=== PATIENT | male | born 1980 | race Caucasian/White ===

== ENCOUNTER 2016-08-02 19:03 | Emergency (ER) | payer OTHER ==
[2016-08-02 19:08] VITALS: BP 142/69; PULSE 94; TEMP 98.4; BMI 45.7
[2016-08-02] MEDS ORDERED: KETOROLAC TROMETHAMINE 30 MG/1 ML VIAL IM ONE (19:10)
[2016-08-02] MEDS ORDERED: KETOROLAC TROMETHAMINE 30 MG/1 ML VIAL ONE (20:58)
--- NOTE | 2016-08-02 21:26 | PDOC ---
History of Present Illness - General Chief Complaint: Injury Stated Complaint: INJURY Time Seen by Provider: 08/02/16 19:06 History Source: Patient Exam Limitations: No Limitations - History of Present Illness Initial Comments: 08/02/16 21:21 36-year-old male presents to the ED with complaints of right hamstring pain after he had jumped over a puddle and landed wrong partially doing the splits. Patient states heard a pop with the episode and has been having difficulty sitting since episode patient states took Motrin with minimal affect and has been using crutches to ambulate to alleviate his discomfort. Patient denies previous injury to the affected area, sensory changes distal of injury, but does state has a bruise to the upper portion of his right hamstring near his buttock. Timing/Duration: other (2 days ago) Associated Symptoms: reports: denies symptoms Past History - Past Medical History Allergies/Adverse Reactions: Allergies Allergy/AdvReac Type Severity Reaction Status Date / Time No Known Allergies Allergy Verified 08/02/16 19:06 Home Medications: Ambulatory Orders Ibuprofen [Motrin] 800 mg PO TID #20 tablet 02/10/15 Suicide Attempt (Hx): No Other medical history: none - Psycho/Social/Smoking Cessation Hx Anxiety: No Suicidal Ideation: No Smoking History: Never smoked Have you smoked in the past 12 months: No Information on smoking cessation initiated: No Hx Alcohol Use: No Drug/Substance Use Hx: No Substance Use Type: None Patient Lives Alone: No Lives with/in: spouse/SO Review of Systems - Review of Systems Able to Perform ROS?: Yes Constitutional: No: Symptoms Reported Musculoskeletal: Yes: Muscle Pain (Right hamstring) Integumentary: Yes: Bruising (right upper hamstring) Neurological: No: Symptoms reported *Physical Exam - Vital Signs Last Vital Signs Temp Pulse Resp BP Pulse Ox 98.4 F 94 H 18 142/69 97 08/02/16 19:06 08/02/16 19:06 08/02/16 19:06 08/02/16 19:06 08/02/16 19:06 - Physical Exam General Appearance: Yes: Nourished, Appropriately Dressed. No: Apparent Distress Vascular Pulses: Dorsalis-Pedis (R): 2+ Extremity: positive: Normal Capillary Refill, Tender (over the bicep femoris muscle and gluteal fold) Integumentary: positive: Bruising (right gluteal fold). negative: Warm, Erythema, Swelling Neurologic: positive: Motor Strength 5/5 (ambulatory without assistance but with slow steady gait) Medical Decision Making - Medical Decision Making 08/02/16 21:26 Patient with right hamstring pain after jumping over a puddle. patient with likely biceps femoris muscle strain versus tear. I recommend patient continue to take analgesics such as Percocet at night to help sleep rest, and apply heat to the affected area. the patient at this may take 2-4 weeks but if pain continues at the same severity to follow-up with referred orthopedist. *DC/Admit/Observation/Transfer Diagnosis at time of Disposition: Strain of distal biceps femoris tendon - Discharge Dispostion Disposition: HOME Condition at time of disposition: Good - Referrals Referrals: Aurelio Verdugo MD [Staff Physician] - - Patient Instructions Printed Discharge Instructions: DI for Hamstring Strain Additional Instructions: I recommend taking Motrin during the day and Percocet at night to alleviate discomfort. Please follow-up with referred orthopedist if pain continues with same severity in the next 2 weeks. otherwise rest and apply heat/ice
== END 2016-08-02 21:43 | disposition home or self-care (01) ==
LOC: JERFT 19:03
PROC: 3E0233Z Introduction of Anti-inflammatory into Muscle, Percutaneous Approach (ICD-10-PCS; principal; 2016-08-02)
DX: S76.811A Strain of other specified muscles, fascia and tendons at thigh level, right thigh, initial encounter (principal); Y93.39 Activity, other involving climbing, rappelling and jumping off; Y93.89 Activity, other specified; Y92.89 Other specified places as the place of occurrence of the external cause
CPT/HCPCS: 99281-25

== ENCOUNTER 2016-12-08 08:24 | Emergency (ER) | payer OTHER ==
[2016-12-08 08:37] VITALS: TEMP 98.2; BMI 38.2
--- NOTE | 2016-12-08 09:02 | PDOC ---
History of Present Illness - General Chief Complaint: Pain, Acute Stated Complaint: PAIN History Source: Patient Exam Limitations: No Limitations - History of Present Illness Initial Comments: 12/08/16 08:43 This is a 36 yo M with PMH of L nephrolithiasis (passed w/o surgical intervention years ago), who presents due to L CVA tenderness that started this morning. Pain feels like his prior nephrolithiasis episode, is constant, sharp, 8/10, radiating to L groin. He enies dysuria, hematuria, frequency, f/c. He denies n/v, diarrhea, constipation, melena, hematochezia, testiculer pain or swelling, penile discharge. Last normal BM yesterday. He denies h/a, chest pain , sob, cough. 12/08/16 09:25 Past History - Past Medical History Allergies/Adverse Reactions: Allergies Allergy/AdvReac Type Severity Reaction Status Date / Time No Known Allergies Allergy Verified 12/08/16 08:34 Home Medications: Ambulatory Orders Ibuprofen [Motrin] 800 mg PO TID #20 tablet 02/10/15 Oxycodone HCl/Acetaminophen [Percocet 5-325 mg Tablet] 1 - 2 tab PO Q6H PRN #12 tab MDD 4 08/02/16 Ibuprofen [Motrin -] 600 mg PO TID #21 tablet 12/08/16 Tamsulosin HCl [Flomax] 0.4 mg PO DAILY #5 cap.er.24h 12/08/16 Kidney Stones: Yes Suicide Attempt (Hx): No Other medical history: obesity - Psycho/Social/Smoking Cessation Hx Anxiety: No Suicidal Ideation: No Smoking History: Never smoked Have you smoked in the past 12 months: No Information on smoking cessation initiated: No Hx Alcohol Use: No Drug/Substance Use Hx: No Substance Use Type: None Review of Systems - Review of Systems Able to Perform ROS?: Yes Is the patient limited [place] Citizen proficient: No Constitutional: No: Chills, Fever, Weakness HEENTM: No: Blurred Vision, Nose Congestion, Throat Pain, Difficulty Swallowing Respiratory: No: Cough, Orthopnea, Shortness of Breath, Wheezing, Hemoptysis Cardiac (ROS): No: Chest Pain, Edema, Irregular Heart Rate, Lightheadedness ABD/GI: Yes: Abdominal cramping (L cva). No: Abdominal Distended, Constipated, Diarrhea, Nausea, Rectal Bleeding, Vomiting, Tarry Stools : Yes: Flank Pain. No: Dysuria, Testicular Swelling, Lesions, Testicular Pain Musculoskeletal: Yes: Back Pain (L CVA). No: Joint Swelling, Neck Pain Integumentary: No: Bruising, Rash Neurological: No: Headache, Numbness, Paresthesia Endocrine: No: Excessive Sweating, Change in Weight Hematologic/Lymphatic: No: Anemia, Blood Clots, Easy Bleeding, Easy Bruising All Other Systems: Reviewed and Negative *Physical Exam - Vital Signs Last Vital Signs Temp Pulse Resp BP Pulse Ox 98.2 F 78 19 138/93 98 12/08/16 08:29 12/08/16 08:29 12/08/16 08:29 12/08/16 08:29 12/08/16 08:29 - Physical Exam Comments: 12/08/16 09:43 General: NAD, aao x 3 HEENT: normocephalic, atraumatic, PERRLA, EOMI, sclera anicteric, conjunctiva clear, moist mucous membranes CV: RRR S1S2 Resp: CTA b/l GI: L CVA pain,LLQ, no guarding, no rebound, nondistended, normoactive bowel sounds. Neuro: CN II-XII grossly intact Musculoskeletal:no peripheral edema. ED Treatment Course - LABORATORY CBC & Chemistry Diagram: 12/08/16 09:02 12/08/16 09:02 Medical Decision Making - Medical Decision Making 12/08/16 09:46 Patient presents with clinical picture most consistent with L nephrolithiasis Bedside US does not show any obvious L kidney abnormality. CBC w diff, cmp, lactic acid, ua, ct abd w/o contrast toradol, 1L NS 12/08/16 10:58 CBC unremarkable, cmp shows mild transaminitis 12/08/16 11:05 CT shows a 5 mm L mid ureteral stone. Patient is currently pain free and urinating. No sign of hydronephrosis. Will administer 0.8 flomax. will d/c home with prescription for NSAID and flomax, as well as referral for Urology and Nephrology *DC/Admit/Observation/Transfer Diagnosis at time of Disposition: Calculus of ureter - Discharge Dispostion Disposition: HOME Condition at time of disposition: Good Admit: No - Prescriptions Prescriptions: Tamsulosin HCl [Flomax] 0.4 mg PO DAILY #5 cap.er.24h Ibuprofen [Motrin -] 600 mg PO TID #21 tablet - Referrals Referrals: Beltran Dennison MD [Staff Physician] - Merna Silver MD [Staff Physician] - - Patient Instructions Printed Discharge Instructions: DI for Kidney Stones Additional Instructions: You have a left sided kidney stone that is not in you ureter (stuck in the tube connecting your kidney and bladder). you should be able to pass it. Please take mortin as needed and flomax daily until you pass it. Follow up with a dictaphone technician and urologist to investigate the cause behind your kidney stones and to discuss preventative measures.
[2016-12-08] MEDS ORDERED: SODIUM CHLORIDE 1,000 ML IV STA (09:03)
[2016-12-08] MEDS ORDERED: KETOROLAC TROMETHAMINE 10 MG TABLET PO ONE (09:03)
--- NOTE | 2016-12-08 09:15 | PDOC ---
Attending Attestation - Resident Resident Name: Sharmin Flower - ED Attending Attestation I have performed the following: I have examined & evaluated the patient, The case was reviewed & discussed with the resident, I agree w/resident's findings & plan, Exceptions are as noted - HPI HPI: 12/08/16 09:14 The patient is a 36-year-old male with a significant past medical history of nephrolithiasis/ureterolithiasis, who presents to the emergency department with flank and abdominal pain. He denies fever. - Physicial Exam PE: 12/08/16 09:46 He is well appearing an din no acute distress Abdomen is soft with mild left mid-abdominal tenderness on deep palpation and L CVA tenderness - Medical Decision Making 12/08/16 09:46 Will obtain labs, UA, CT 12/08/16 10:15 CBC noted, without leukocytosis Urinalysis noted with hematuria, but without bacteriuria CT pending 12/08/16 11:03 CT noted He has remained pain-free since the initial dose of medication Will refer to urology Clinical impression: Ureterolithiasis I discussed the physical exam findings, ancillary test results and final diagnoses with the patient. I answered all of the patient's questions. The patient was satisfied with the care received and felt comfortable with the discharge plan and treatment plan. The patient will call their primary care physician within 24 hours to arrange follow-up and will return to the Emergency Department with any new, persistent or worsening symptoms.
[2016-12-08] MEDS ORDERED: KETOROLAC TROMETHAMINE 60 MG/2 ML VIAL ONE (09:21)
[2016-12-08] MEDS ORDERED: KETOROLAC TROMETHAMINE 30 MG/1 ML VIAL IVPUSH ONE (10:01)
[2016-12-08 10:05] LABS: URINE APPEARANCE CLEAR; URINE BILIRUBIN NEGATIVE (NEGATIVE); URINE COLOR YELLOW; URINE GLUCOSE (UA) NEGATIVE (NEGATIVE); URINE KETONE NEGATIVE (NEGATIVE); URINE LEUK ESTERASE NEGATIVE (NEGATIVE); URINE NITRITE NEGATIVE (NEGATIVE); URINE PROTEIN NEGATIVE (NEGATIVE); URINE UROBILINOGEN NEGATIVE E.U./dl (0.2-1.0)
[2016-12-08 10:05] LABS: BASOPHIL 0.2 % (0-2.0); EOSINOPHIL 1.8 % (0-4.5); MCH 27.7 pg (25.7-33.7); MCHC 33.5 g/dl (32.0-35.9); MEAN CELL VOLUME 82.6 fl (80-96); NEUTROPHILS 56.4 % (42.8-82.8); PLATELET COUNT 240 K/MM3 (134-434); RDW 13.9 % (11.9-15.9); WHITE BLOOD COUNT 6.6 K/mm3 (4.0-10.0)
[2016-12-08 10:09] LABS: URINE BLOOD 2+ (NEGATIVE)
[2016-12-08 10:13] LABS: URINE MUCUS RARE; URINE RBC 10 /hpf (0-3); URINE WBC <1 /hpf (3-5)
[2016-12-08 10:36] LABS: ALBUMIN 3.7 g/dl (3.4-5.0); ANION GAP 9 (8-16); CALCIUM 9.2 mg/dL (8.5-10.1); CO2 28 mmol/L (21-32); GLUCOSE,RANDOM 116 mg/dL (74-106)
[2016-12-08 10:39] LABS: BILIRUBIN,TOTAL 0.4 mg/dL (0.2-1.0); SGOT/AST 61 U/L (15-37); SGPT/ALT 155 U/L (12-78); TOT PROT 7.9 g/dl (6.4-8.2)
[2016-12-08 10:40] LABS: ALK PHOS 75 U/L (45-117)
[2016-12-08] MEDS ORDERED: TAMSULOSIN HCL 0.4 MG CAP.ER.24H (FP) PO ONE (11:03)
[2016-12-08] MEDS ORDERED: TAMSULOSIN HCL 0.4 MG CAP.ER.24H (FP) ONE (12:01)
[2016-12-08 12:16] VITALS: BP 135/69; PULSE 85
== END 2016-12-08 12:16 | disposition home or self-care (01) ==
LOC: JER 08:24
PROC: 3E0333Z Introduction of Anti-inflammatory into Peripheral Vein, Percutaneous Approach (ICD-10-PCS; principal; 2016-12-08)
PROC: 3E0337Z Introduction of Electrolytic and Water Balance Substance into Peripheral Vein, Percutaneous Approach (ICD-10-PCS; 2016-12-08)
DX: N20.1 Calculus of ureter (principal)
CPT/HCPCS: 36415; 74176-TC; 80053; 81003; 81015; 83605; 85025; 99283-25

== ENCOUNTER 2022-06-04 19:15 | Emergency (ER) | payer OTHER ==
[2022-06-04 19:34] VITALS: BP 141/84; RESP 20; BMI 49.9
[2022-06-04] MEDS ORDERED: ACETAMINOPHEN 500 MG TABLET (FP) PO ONE (20:21)
[2022-06-04] MEDS ORDERED: ACETAMINOPHEN 500 MG TABLET (FP) ONE (20:47)
[2022-06-04 21:01] VITALS: PULSE 90; TEMP 99
== END 2022-06-04 21:15 | disposition home or self-care (01) ==
LOC: JERFT 19:15
DX: J09.X2 Influenza due to identified novel influenza A virus with other respiratory manifestations (principal); R05.1 Acute cough; R50.9 Fever, unspecified
CPT/HCPCS: 0241U-QW; 71046-TC-FY; 93005; 93010; 99285-25